=== PATIENT | female | born 1950 | race Caucasian/White ===

== ENCOUNTER 2022-10-23 06:52 | Day surgery (SDC) | payer MEDICARE ==
[2022-10-23] MEDS ORDERED: Propofol 200 MG/20 ML SDV ONE (07:17)
[2022-10-23] MEDS ORDERED: fentaNYL 50 MCG/ML SDV ONE (07:18)
[2022-10-23] MEDS ORDERED: Lactated Ringers 1,000 ML IV SCH (07:30)
== END 2022-10-23 09:51 | disposition home or self-care (01) ==
LOC: JP.SDS 06:52
PROVIDERS: ATTEND Family Medicine
DX: Z12.11 Encounter for screening for malignant neoplasm of colon (principal); D12.7 Benign neoplasm of rectosigmoid junction; D12.4 Benign neoplasm of descending colon; Z98.890 Other specified postprocedural states; Z79.899 Other long term (current) drug therapy
CPT/HCPCS: 45380; J2704; J3010; J7120; 88305

== ENCOUNTER 2024-07-23 10:33 | Inpatient (IN) | payer MEDICARE ==
[2024-07-23] MEDS ORDERED: Albuterol 0.083% 2.5 MG/3 ML Neb Soln NEB PRN (10:56)
[2024-07-23] MEDS ORDERED: Ondansetron 4 MG/2 ML SDV IV PRN (10:56)
[2024-07-23] MEDS ORDERED: Acetaminophen 325 MG Tab PO PRN (10:56)
[2024-07-23] MEDS ORDERED: Polyethylene Glycol 3350 Powder 17 GM Packet PO PRN (10:56)
[2024-07-23] MEDS ORDERED: Sodium Chloride 0.9% 10 ML Syringe FLUSH PRN (10:56)
[2024-07-23] MEDS: Albuterol/Ipratropium 3.0-0.5 MG/3 ML Neb Soln NEB SCH (11:35)
[2024-07-23 11:37] LABS: HEMATOCRIT 34.3 % (34.3-46.0); HEMOGLOBIN 11.4 g/dL (11.2-15.5); MEAN CORPUSCULAR HEMOGLOBIN 27.8 pg (31.6-35.5); MEAN CORPUSCULAR HGB CONC 33.2 g/dL (31.6-35.5); MEAN CORPUSCULAR VOLUME 83.7 fL (81.4-99.0); PLATELET COUNT,PLT 277 K/uL (130-375); WHITE BLOOD CELL COUNT,WBC 16.4 K/uL (3.2-11.0)
[2024-07-23 11:59] LABS: A/G RATIO 0.4 (1.2-2.2); ALANINE AMINOTRANSFERASE,ALT 16 U/L (12-78); ALBUMIN 2.7 g/dL (3.4-5.0); ALKALINE PHOSPHATASE 113 U/L (46-116); ASPARTATE AMNIOTRANSFERASE,AST 41 U/L (15-37); BILIRUBIN TOTAL 0.6 mg/dL (0.2-1.0); BLOOD UREA NITROGEN,BUN 32 mg/dL (7-18); CALCIUM 9.4 mg/dL (8.5-10.1); CARBON DIOXIDE,CO2 27 mmol/L (21-32); CHLORIDE,CL 98 mmol/L (100-108); CREATININE 0.9 mg/dL (0.6-1.0); EST CRCL DRUG DOSING (CG) 50.56 mL/min; ESTIMATED GFR 67 mL/min (>60); GLUCOSE RANDOM 124 mg/dL (74-106); PROTEIN TOTAL,TP 9.1 g/dL (6.4-8.2); SODIUM,NA 137 mmol/L (140-148)
[2024-07-23 12:11] LABS: BAND ABSOLUTE MAN 0.49 K/uL; BAND PERCENT MAN 3 % (5-11); BASOPHILS ABSOLUTE MAN 0.16 K/uL (0.00-0.10); BASOPHILS PERCENT MAN 1 % (0-1); LYMPHOCYTES ABSOLUTE MAN 1.64 K/uL (0.8-3.3); LYMPHOCYTES PERCENT MAN 10 % (24-44); METAMYELOCYTE ABSOLUTE MAN 0.49 K/uL; METAMYELOCYTE PERCENT MAN 3 %; NEUTROPHILS ABSOLUTE MAN 13.61 K/uL (1.0-7.6); SEG NEUTROPHILS PERCENT MAN 83 % (36-66)
[2024-07-23] MEDS: cefTRIAXone 1 GM in Sodium Chloride 0.9% 50 ML IV SCH (12:27)
[2024-07-23] MEDS: methylPREDNISolone Sodium Succinate 40 MG/1 ML SDV IVPUSH SCH (12:27)
[2024-07-23] MEDS: Sodium Chloride 0.9% 1,000 ML IV SCH (12:27)
[2024-07-23] MEDS: Doxycycline 100 MG in Sodium Chloride 0.9% 100 ML IV SCH (13:02)
[2024-07-23] MEDS: Enoxaparin 40 MG/0.4 ML Syringe SUBCUT SCH (13:02)
[2024-07-23] MEDS: Potassium Chloride 20 MEQ Tab.ER PO ONE ×2 (15:14→19:00)
[2024-07-23] MEDS: traZODone 50 MG Tab PO SCH (20:01)
[2024-07-24] MEDS: Melatonin 3 MG Tab PO SCH (00:21)
[2024-07-24 05:43] LABS: HEMATOCRIT 30.8 % (34.3-46.0); HEMOGLOBIN 10.3 g/dL (11.2-15.5); MEAN CORPUSCULAR HEMOGLOBIN 28.1 pg (31.6-35.5); MEAN CORPUSCULAR HGB CONC 33.4 g/dL (31.6-35.5); MEAN CORPUSCULAR VOLUME 83.9 fL (81.4-99.0); RED BLOOD CELL COUNT 3.67 M/uL (3.77-5.24); WHITE BLOOD CELL COUNT,WBC 16.9 K/uL (3.2-11.0)
[2024-07-24 05:57] LABS: CALCIUM 8.9 mg/dL (8.5-10.1); CREATININE 0.8 mg/dL (0.6-1.0); EST CRCL DRUG DOSING (CG) 56.88 mL/min; POTASSIUM,K 4.5 mmol/L (3.6-5.2)
[2024-07-24 05:58] LABS: ANION GAP 13.5 mmol/L (5.0-14.0)
[2024-07-24] MEDS: Sertraline 50 MG Tab PO SCH (09:30)
[2024-07-24] MEDS: Sodium Chloride 0.9% 1,000 ML IV SCH (16:56)
[2024-07-24] MEDS ORDERED: Melatonin 3 MG Tab PO SCH (21:00)
[2024-07-25 06:13] LABS: HEMATOCRIT 29.3 % (34.3-46.0); HEMOGLOBIN 9.4 g/dL (11.2-15.5); MEAN CORPUSCULAR HEMOGLOBIN 27.3 pg (31.6-35.5); MEAN CORPUSCULAR HGB CONC 32.1 g/dL (31.6-35.5); MEAN CORPUSCULAR VOLUME 85.2 fL (81.4-99.0); RED BLOOD CELL COUNT 3.44 M/uL (3.77-5.24); WHITE BLOOD CELL COUNT,WBC 17.3 K/uL (3.2-11.0)
[2024-07-26] MEDS: Cefdinir 300 MG Cap PO SCH (08:39)
[2024-07-26] MEDS: Doxycycline 100 MG Cap PO SCH (08:40)
[2024-07-26] MEDS: predniSONE 20 MG Tab PO SCH (08:40)
== END 2024-07-26 11:45 | disposition home or self-care (01) | DRG 193 ==
LOC: JP.MS 10:33
PROVIDERS: ADMIT Hospitalist; ATTEND Internal Medicine
DX: J10.00 Influenza due to other identified influenza virus with unspecified type of pneumonia (principal); J96.21 Acute and chronic respiratory failure with hypoxia; J44.0 Chronic obstructive pulmonary disease with (acute) lower respiratory infection; J44.1 Chronic obstructive pulmonary disease with (acute) exacerbation; M19.90 Unspecified osteoarthritis, unspecified site; F32.A Depression, unspecified; E66.9 Obesity, unspecified; Z87.891 Personal history of nicotine dependence; Z79.51 Long term (current) use of inhaled steroids; Z79.899 Other long term (current) drug therapy; Z68.24 Body mass index [BMI] 24.0-24.9, adult
CPT/HCPCS: 36415; 71046; 71046-26; 80048; 80053; 83735; 85025; 85027; 87040; 94640; 97110-GP; 97161-GP; 99222; 99232; 99238; A9270-GY; J0696; J1650; J2919; J3490; J7030; J7512; J7620

== ENCOUNTER 2024-10-02 08:20 | Day surgery (SDC) | payer MEDICARE ==
[~2024-10-02 08:20] MED LIST: Midazolam 1 MG/ML 2 ML SDV ONE; Propofol 200 MG/20 ML SDV ONE; fentaNYL 100 MCG/2 ML SDV ONE
[2024-10-02] MEDS: ceFAZolin 2 GM in Premix Bag 1 BAG IV ONE (09:20)
[2024-10-02] MEDS: Lactated Ringers 1,000 ML IV SCH (09:22)
[2024-10-02] MEDS: Bupivacaine 0.25%/EPINEPHrine 1:200,000 30 ML SDV ONE (09:52)
[2024-10-02] MEDS ORDERED: Lactated Ringers 1,000 ML IV SCH (13:00)
== END 2024-10-02 11:10 | disposition home or self-care (01) ==
LOC: JP.SDS 08:20
PROVIDERS: ATTEND Surgery
DX: C81.90 Hodgkin lymphoma, unspecified, unspecified site (principal); K21.9 Gastro-esophageal reflux disease without esophagitis
CPT/HCPCS: 00532; 36561; 36598; 71045; C1788; C1894; J0690; J1642; J2250; J2704; J3010; J7120

== ENCOUNTER 2024-10-17 18:13 | Emergency (ER) | payer MEDICARE ==
[2024-10-17] MEDS: Ketorolac 15 MG/ML SDV IVPUSH ONE (18:37)
[2024-10-17] MEDS: Sodium Chloride 0.9% 10 ML Syringe FLUSH PRN (18:39)
[2024-10-17 19:01] LABS: HEMATOCRIT 30.5 % (34.3-46.0); HEMOGLOBIN 9.6 g/dL (11.2-15.5); MEAN CORPUSCULAR HEMOGLOBIN 27.1 pg (31.6-35.5); MEAN CORPUSCULAR HGB CONC 31.5 g/dL (31.6-35.5); MEAN CORPUSCULAR VOLUME 86.2 fL (81.4-99.0); PLATELET COUNT,PLT 278 K/uL (130-375); RED BLOOD CELL COUNT 3.54 M/uL (3.77-5.24); WHITE BLOOD CELL COUNT,WBC 4.5 K/uL (3.2-11.0)
[2024-10-17 19:08] LABS: BAND ABSOLUTE MAN 0.05 K/uL; BAND PERCENT MAN 1 % (5-11); EOSINOPHILS ABSOLUTE MAN 0.09 K/uL (0.00-0.40); EOSINOPHILS PERCENT MAN 2 % (2-4); LYMPHOCYTES PERCENT MAN 11 % (24-44); METAMYELOCYTE ABSOLUTE MAN 0.05 K/uL; METAMYELOCYTE PERCENT MAN 1 %; MONOCYTES ABSOLUTE MAN 0.05 K/uL (0.20-0.90); MONOCYTES PERCENT MAN 1 % (2-6); NEUTROPHILS ABSOLUTE MAN 3.78 K/uL (1.0-7.6); SEG NEUTROPHILS PERCENT MAN 84 % (36-66)
[2024-10-17] MEDS: Iopamidol 612 MG/ML 100 ML Bottle IV SCH (19:08)
[2024-10-17] MEDS: Sodium Chloride 0.9% 80 ML IV SCH (19:08)
[2024-10-17 19:11] LABS: ATYPICAL LYMPHOCYTES RARE
[2024-10-17 19:19] LABS: A/G RATIO 0.5 (1.2-2.2); ALANINE AMINOTRANSFERASE,ALT 25 U/L (12-78); ALBUMIN 2.6 g/dL (3.4-5.0); ALKALINE PHOSPHATASE 163 U/L (46-116); ANION GAP 15.4 mmol/L (5.0-14.0); ASPARTATE AMNIOTRANSFERASE,AST 34 U/L (15-37); BILIRUBIN TOTAL 0.4 mg/dL (0.2-1.0); BLOOD UREA NITROGEN,BUN 18 mg/dL (7-18); CALCIUM 9.5 mg/dL (8.5-10.1); CARBON DIOXIDE,CO2 27 mmol/L (21-32); CHLORIDE,CL 93 mmol/L (100-108); CREATININE 0.7 mg/dL (0.6-1.0); EST CRCL DRUG DOSING (CG) 64.01 mL/min; ESTIMATED GFR 90 mL/min (>60); GLUCOSE RANDOM 128 mg/dL (74-106); POTASSIUM,K 4.4 mmol/L (3.6-5.2); PROTEIN TOTAL,TP 7.7 g/dL (6.4-8.2); SODIUM,NA 131 mmol/L (140-148); TROPONIN I HIGH SENSITIVITY 9.7 pg/mL (<=60.3)
== END 2024-10-17 20:15 | disposition home or self-care (01) ==
LOC: JP.ED 18:13
DX: S22.42XA Multiple fractures of ribs, left side, initial encounter for closed fracture (principal); E66.9 Obesity, unspecified; Z87.891 Personal history of nicotine dependence; Z79.899 Other long term (current) drug therapy; W01.0XXA Fall on same level from slipping, tripping and stumbling without subsequent striking against object, initial encounter
CPT/HCPCS: 36415; 71260; 80053; 83605; 83880; 84484; 85025; 93005; 96374; 99285; J1642; J1885; Q9967; 93010; 99284

== ENCOUNTER 2024-10-23 23:52 | Emergency (ER) | payer MEDICARE ==
[2024-10-24] MEDS ORDERED: Sodium Chloride 0.9% 10 ML Syringe FLUSH PRN (00:12)
[2024-10-24] MEDS: Sodium Chloride 0.9% 1,000 ML IV SCH (00:29)
[2024-10-24 00:33] LABS: HEMATOCRIT 25.3 % (34.3-46.0); HEMOGLOBIN 8.1 g/dL (11.2-15.5); MEAN CORPUSCULAR HEMOGLOBIN 27.6 pg (31.6-35.5); MEAN CORPUSCULAR VOLUME 86.3 fL (81.4-99.0); PLATELET COUNT,PLT 181 K/uL (130-375); RED BLOOD CELL COUNT 2.93 M/uL (3.77-5.24); WHITE BLOOD CELL COUNT,WBC 2.1 K/uL (3.2-11.0)
[2024-10-24 00:50] LABS: EOSINOPHILS ABSOLUTE MAN 0.21 K/uL (0.00-0.40); EOSINOPHILS PERCENT MAN 10 % (2-4); LYMPHOCYTES ABSOLUTE MAN 0.46 K/uL (0.8-3.3); LYMPHOCYTES PERCENT MAN 22 % (24-44); METAMYELOCYTE ABSOLUTE MAN 0.02 K/uL; METAMYELOCYTE PERCENT MAN 1 %; MONOCYTES ABSOLUTE MAN 0.23 K/uL (0.20-0.90); MONOCYTES PERCENT MAN 11 % (2-6); MYELOCYTE ABSOLUTE MAN 0.02; MYELOCYTE PERCENT MAN 1 %; NEUTROPHILS ABSOLUTE MAN 1.16 K/uL (1.0-7.6); SEG NEUTROPHILS PERCENT MAN 55 % (36-66)
[2024-10-24 00:55] LABS: A/G RATIO 0.5 (1.2-2.2); ALANINE AMINOTRANSFERASE,ALT 20 U/L (12-78); ALBUMIN 2.2 g/dL (3.4-5.0); ALKALINE PHOSPHATASE 248 U/L (46-116); ASPARTATE AMNIOTRANSFERASE,AST 37 U/L (15-37); BILIRUBIN TOTAL 0.5 mg/dL (0.2-1.0); BLOOD UREA NITROGEN,BUN 13 mg/dL (7-18); CALCIUM 8.4 mg/dL (8.5-10.1); CARBON DIOXIDE,CO2 26 mmol/L (21-32); CHLORIDE,CL 93 mmol/L (100-108); CREATININE 0.7 mg/dL (0.6-1.0); EST CRCL DRUG DOSING (CG) 61.52 mL/min; ESTIMATED GFR 90 mL/min (>60); GLUCOSE RANDOM 118 mg/dL (74-106); POTASSIUM,K 3.8 mmol/L (3.6-5.2); PROTEIN TOTAL,TP 6.4 g/dL (6.4-8.2); SODIUM,NA 127 mmol/L (140-148)
[2024-10-24 00:56] LABS: ANION GAP 11.8 mmol/L (5.0-14.0)
[2024-10-24 01:01] LABS: APPEARANCE,URINE CLEAR (CLEAR); BILIRUBIN,URINE NEGATIVE (NEGATIVE); COLOR,URINE YELLOW (YELLOW); GLUCOSE,URINE NEGATIVE (NEGATIVE); KETONES,URINE NEGATIVE (NEGATIVE); LEUKOCYTE ESTERASE,URINE NEGATIVE (NEGATIVE); NITRITE,URINE NEGATIVE (NEGATIVE); OCCULT BLOOD,URINE NEGATIVE (NEGATIVE); PROTEIN,URINE TRACE mg/dL (NEGATIVE); UROBILINOGEN,URINE 0.2 EU/dL (0.2-1.0)
[2024-10-24 01:07] LABS: BACTERIA,URINE FEW; EPITHELIAL CELLS,URINE FEW; MUCUS,URINE NOT SEEN; RBC,URINE 0-5 (0-5); WBC,URINE 0-5 (0-5)
[2024-10-24 01:08] LABS: AMORPHOUS SEDIMENT,URINE NOT SEEN
[2024-10-24] MEDS: Meropenem 1 GM in Sodium Chloride 0.9% 100 ML IV ONE (01:24)
[2024-10-24] MEDS: Heparin Sodium/D5W 25,000 UNITS/500 ML BAG IV SCH (01:45)
[2024-10-24] MEDS: Heparin Sodium 5,000 Units/ML Vial IVPUSH ONE (01:45)
[2024-10-24] MEDS: Aspirin 81 MG Tab.Chew PO ONE (01:46)
[2024-10-24] MEDS: VANCOmycin 1 GM in Sodium Chloride 0.9% 250 ML IV ONE (02:06)
[2024-10-24] MEDS: Sodium Chloride 0.9% 100 ML IV SCH (02:26)
[2024-10-24] MEDS: Iopamidol 755 Mg/ML 100 ML Bottle IV ONE (02:26)
[2024-10-24] MEDS: Norepinephrine Bit/D5W Premix 4 MG in Premix Bag 1 BAG IV SCH (02:57)
== END 2024-10-24 03:52 ==
LOC: JP.ED 23:52
DX: I21.4 Non-ST elevation (NSTEMI) myocardial infarction (principal); D70.9 Neutropenia, unspecified; R50.81 Fever presenting with conditions classified elsewhere; E87.1 Hypo-osmolality and hyponatremia; J44.9 Chronic obstructive pulmonary disease, unspecified; Z85.72 Personal history of non-Hodgkin lymphomas; Z79.51 Long term (current) use of inhaled steroids; Z79.899 Other long term (current) drug therapy; Z79.890 Hormone replacement therapy
CPT/HCPCS: 36415; 71275; 80053; 81001; 83605; 84484; 85025; 85379; 87040; 87086; 93005; 93010; 96361; 96365; 96366; 96367; 96368; 99285; 99285-25; A9270-GY; J1644; J2185; J7030; J7050; Q9967

== ENCOUNTER 2025-06-14 08:11 | Day surgery (SDC) | payer MEDICARE ==
[2025-06-14] MEDS: Lactated Ringers 1,000 ML IV SCH (08:56)
[2025-06-14] MEDS: Lidocaine 1% with EPINEPHrine 1:100,000 50 ML MDV ONE (10:10)
== END 2025-06-14 11:26 | disposition home or self-care (01) ==
LOC: JP.SDS 08:11 → EDSTATUS 15:30
PROVIDERS: ATTEND Surgery
DX: Z45.2 Encounter for adjustment and management of vascular access device (principal)
CPT/HCPCS: 00400; 36590; J0690; J2704; J3010; J7120; J0665; J2250